=== PATIENT | female | born 1970 | race Caucasian/White ===

== ENCOUNTER 2022-10-30 19:39 | Emergency (ER) | payer OTHER ==
[2022-10-30 20:02] VITALS: BP 157/100; PULSE 70; RESP 19; TEMP 97.9; BMI 35.9
== END 2022-10-30 21:15 | disposition home or self-care (01) ==
LOC: FER 19:39
DX: S90.31XA Contusion of right foot, initial encounter (principal); V00.148A Other scooter (nonmotorized) accident, initial encounter
CPT/HCPCS: 73630-TC-RT-FY; 99283-25